=== PATIENT | female | born 1995 | race Caucasian/White ===

== ENCOUNTER 2022-07-23 09:48 | Inpatient (IN) | payer OTHER, BC ==
[2022-07-23] MEDS ORDERED: LIDOCAINE 0.5% (PF) 5 MG/ML (50 ML SDV) SQ PRN (10:23)
[2022-07-23] MEDS ORDERED: OXYTOCIN 10 UNIT/ML 1 ML VIAL IM PRN (10:23)
[2022-07-23] MEDS ORDERED: METHYLERGONOVINE 0.2 MG/ML 1 ML AMP IM PRN (10:23)
[2022-07-23] MEDS ORDERED: CARBOPROST TROMETHAMINE 250 MCG/ML 1 ML AMP IM PRN (10:23)
[2022-07-23] MEDS ORDERED: TERBUTALINE 1 MG/ML VIAL SQ PRN (10:23)
[2022-07-23] MEDS ORDERED: OXYTOCIN 30 UNITS/500 ML NS 30 UNIT in SALINE 1 500ML.BAG IV SCH ×2 (10:30→23:30)
[2022-07-23] MEDS: LACTATED RINGERS 1,000 ML IV SCH ×2 (11:02→17:06)
--- NOTE | 2022-07-23 11:06 | P.HPOB ---
History of Present Illness H&P Date: 07/23/22 Chief Complaint: Leaking of fluid This patient is a pleasant 26-year-old 1 para 0 female estimated date of confinement 08/03/2022 estimated gestational age 38-2/7 weeks who presents to labor and delivery with complaints of gush of fluid earlier this morning. Patient presents to labor and delivery an amnio sure is positive with gross rupture membranes for light meconium-stained fluid. care has been uncomplicated. She did have an ultrasound my office that suggested a possible pericardial effusion however she was referred to maternal- medicine and level III ultrasound did not confirm this. She had a normal cardiac echo. care otherwise is uncomplicated. Review of Systems Genitourinary: Reports Menstruation: Reports amenorrhea Past Medical History History of Any Multi-Drug Resistant Organisms: None Reported Past Surgical History: Adenoidectomy, Tonsillectomy Additional Past Surgical History / Comment(s): Oral surgery Past Anesthesia/Blood Transfusion Reactions: No Reported Reaction Past Psychological History: No Psychological Hx Reported Smoking Status: Never smoker Past Alcohol Use History: None Reported Past Drug Use History: None Reported Medications and Allergies Home Medications Medication Instructions Recorded Confirmed Type Vit No.179/Iron/Folic 1 tab PO DAILY 07/23/22 07/23/22 History [ Tablet] Allergies Allergy/AdvReac Type Severity Reaction Status Date / Time No Known Allergies Allergy Verified 07/23/22 10:09 Exam Vital Signs Temp Pulse Resp BP Pulse Ox 07/23/22 10:20 98.0 F 102 H 16 129/78 99 Intake and Output 07/22/22 07/23/22 07/23/22 22:59 06:59 14:59 Other: Weight 108.862 kg - OBG Physical Exam Abdomen: bowel sounds normal, no diffuse tenderness, no bruit present, no guarding noted, no hepatomegaly, no splenomegaly, no mass Vulva: both: normal Vagina: normal moisture, no discharge Cervix: no lesion (Cervix is 1 cm and thick.), no discharge Uterus: enlarged (Fundal height is 38 cm) Results blood work shows she is O positive, rubella immune, RPR nonreactive, hepatitis B negative, HIV is nonreactive, Glucola was normal, group B strep was negative, most recent ultrasound done on the showed the baby to be 6 lbs. 12 oz. Assessment and Plan Assessment: This is a pleasant 26-year-old 1 para 0 female 38-2/7 weeks gestation admitted to labor and delivery with spontaneous rupture membranes and meconium- stained fluid. Patient's cervix is 1 cm and thick. Plan is to admit for delivery and Pitocin augmentation as needed. Anticipate vaginal delivery. (1) 38 weeks gestation of Current Visit: Yes Status: Acute Code(s): Z3A.38 - 38 WEEKS GESTATION OF SNOMED Code(s): 37428163 (2) Spontaneous rupture of amniotic membranes Current Visit: Yes Status: Acute Code(s): LMU0574 - SNOMED Code(s): 483568343 (3) Meconium in amniotic fluid Current Visit: Yes Status: Acute Code(s): P96.83 - MECONIUM STAINING SNOMED Code(s): 571625982
[2022-07-23 11:14] LABS: Basophils % (A) 0 %; Eosinophils # (A) 0.1 k/uL (0-0.7); Eosinophils % (A) 1 %; HCT 35.7 % (34.0-46.0); HGB 11.6 gm/dL (11.4-16.0); Hypochromasia Slight; Lymphocytes # (A) 1.7 k/uL (1.0-4.8); Lymphocytes % (A) 16 %; MCH 27.7 pg (25.0-35.0); MCHC 32.5 g/dL (31.0-37.0); MCV 85.3 fL (80.0-100.0); Mean Platelet Volume 8.5; Monocytes # (A) 0.5 k/uL (0-1.0); Monocytes % (A) 4 %; Neutrophils # (A) 8.6 k/uL (1.3-7.7); Neutrophils % (A) 78 %; Platelet Count 280 k/uL (150-450); RBC 4.18 m/uL (3.80-5.40); RDW 14.5 % (11.5-15.5)
[2022-07-23] MEDS ORDERED: ROPIVACAINE 5 MG/ML 20 ML AMPULE ONE (17:01)
[2022-07-23] MEDS ORDERED: fentaNYL (PF) 50 MCG/ML 5 ML AMP ONE (17:01)
[2022-07-23] MEDS ORDERED: SODIUM CHLORIDE 0.9% 100 ML BAG ONE (17:01)
[2022-07-23] MEDS ORDERED: diphenhydrAMINE 50 MG CAP PO PRN (23:27)
[2022-07-23] MEDS ORDERED: ZOLPIDEM 5 MG TAB PO PRN (23:27)
[2022-07-23] MEDS ORDERED: ACETAMINOPHEN TAB 325 MG TAB PO PRN (23:27)
[2022-07-23] MEDS ORDERED: HYDROCORTISONE 2.5% RECTAL CREAM 30 GM TUBE RECTAL PRN (23:27)
[2022-07-23] MEDS ORDERED: diphenhydrAMINE 50 MG/ML 1 ML VIAL IVP PRN ×2 (23:27)
[2022-07-23] MEDS ORDERED: diphenhydrAMINE 25 MG CAP PO PRN (23:27)
[2022-07-23] MEDS ORDERED: LANOLIN CREAM 5 GM TUBE TOPICAL PRN (23:27)
[2022-07-23] MEDS ORDERED: SIMETHICONE 80 MG CHEWABLE PO PRN (23:27)
[2022-07-23] MEDS ORDERED: BENZOCAINE/MENTHOL SPRAY 1 GM/SPRAY AEROSOL TOPICAL PRN (23:27)
--- NOTE | 2022-07-23 23:27 | P.PROBDLV ---
Vaginal Delivery Note - . Vaginal Delivery Note: 26-year-old 1 para 0 female estimated date of confinement 08/03/2022 estimated gestational age 38-2/7 weeks who presents to labor and delivery with complaints of gush of fluid earlier this morning. Patient presents to labor and delivery an amnio sure is positive with gross rupture membranes for light meconium-stained fluid. Her cervix was 1 cm dilated, 50% effaced, -2 station. She was not sugar. heart tones 135 with moderate variability and r eactive. Pitocin augmentation was soon started. When she was very uncomfortable 3 cm she did get an epidural late in the day. Her cervix was completely dilated at 2038. She pushed, delivered a viable female over intact perineum under epidural anesthesia at 2311. Head delivered OA, anterior shoulder delivered gentle downward guidance followed by posterior shoulder and rest of body. Nose and mouth bulb suctioned, cord clamped and cut, placed on mother's abdomen. Apgars 8, 9, weight 7 lbs. 7 oz. Placenta delivered spontaneously, intact with three-vessel cord at 2314. Vagina, cervix, and perineum were inspected. First-degree midline laceration was repaired with 3-0 Vicryl. Estimated blood loss 75 mL. Mother and baby in stable condition.
[2022-07-24] MEDS: IBUPROFEN 600 MG TAB PO PRN ×3 (00:27→20:03)
--- NOTE | 2022-07-24 06:37 | P.PNOBGVD ---
Subjective - Subjective Patient reports: Reports appetite normal, Reports voiding normally, Reports pain well controlled, Reports ambulating normally : doing well Objective - Latest Vital Signs Latest vital signs: Vital Signs Temp Pulse Resp BP Pulse Ox 07/24/22 04:00 99.3 F 98 16 122/70 97 07/24/22 01:23 97.9 F 96 16 126/63 07/24/22 00:53 98.2 F 97 16 128/77 07/24/22 00:23 98.3 F 95 16 143/67 07/24/22 00:08 117 H 16 147/79 07/23/22 23:53 98.1 F 110 H 16 142/83 07/23/22 23:38 110 H 16 130/61 07/23/22 23:23 98.4 F 106 H 18 124/66 07/23/22 10:34 98 F 102 H 16 129/78 99 07/23/22 10:20 98.0 F 102 H 16 129/78 99 Intake and Output 07/23/22 07/23/22 07/24/22 14:59 22:59 06:59 Intake Total 400 189.6 Output Total 350 310 Balance 400 -350 -120.4 Intake: IV 400 Intake, IV Titration 189.6 Amount Oxytocin 30 Units/500 ml 189.6 Ns 30 unit In Saline 1 500ml.bag @ Per Protocol IV .Q0M [facility] Rx#:[id number] Output: Urine 350 Estimated Blood Loss 75 Output, Quantitative 235 Blood Loss Other: # Voids 2 1 Weight 108.862 kg - Exam Lungs: bilateral: normal Chest: Normal S1, Normal S2 Extremities: Present: normal Abdomen: Present: normal appearance, soft Uterus: Present: normal, firm - Labs Labs: Abnormal Lab Results - Last 24 Hours (Table) 07/23/22 Range/Units 10:15 WBC 11.0 H (3.8-10.6) k/uL Neutrophils # 8.6 H (1.3-7.7) k/uL Assessment and Plan Assessment: day #1. Patient is resting without complaints. Vital signs are stable she's afebrile. Uterus is firm nontender and she is having normal lochia. Impression this is a normal course. Plan is to check a CBC. Continue routine care. (1) 38 weeks gestation of Current Visit: Yes Status: Acute Code(s): Z3A.38 - 38 WEEKS GESTATION OF SNOMED Code(s): 77858866 (2) Spontaneous rupture of amniotic membranes Current Visit: Yes Status: Acute Code(s): MTW4928 - SNOMED Code(s): 571302310 (3) Meconium in amniotic fluid Current Visit: Yes Status: Acute Code(s): P96.83 - MECONIUM STAINING SN OMED Code(s): 241819199
--- NOTE | 2022-07-24 06:51 | P.MSEPDOC ---
Presenting Problems - Arrival Data Date of Arrival on Unit: 07/23/22 Time of Arrival on Unit: 10:16 Mode of Transport: Ambulatory - Complaint OB-Reason for Admission/Chief Complaint: Rule Out SROM Medical History - Information : 1 Para: 0 Term: 0 : 0 Abortions: Spontaneous or Elective: 0 Number of Living Children: 0 - Gestational Age Gestational Age by EDGAR (wks/days): 38 Weeks and 4 Days Review of Systems - Review of Systems Constitutional: No problems Breast: No problems ENT: No problems Cardiovascular: No problems Respiratory: No problems Gastrointestinal: No problems Genitourinary: No problems Musculoskeletal: No problems Neurological: No problems Skin: No problems Vital Signs - Temperature Temperature: 99.3 F Temperature Source: Oral - Pulse Right Sitting Pulse Rate: 98 Pulse Assessment Method: Pulse Oximetry - Respirations Respiratory Rate: 16 Oxygen Delivery Method: Room Air O2 Sat by Pulse Oximetry: 97 - Blood Pressure Right Arm Blood Pressure: 122/70 Blood Pressure Mean: 87 Blood Pressure Source: Automatic Cuff Medical Screen Scoring - Cervical Exam Dilation (cm): 1 Effacement (%): 50 Station: -2 Membranes: Ruptured - Uterine Contractions Intensity: Mild Resting: Soft to palpation - Assessment - Baby A Baseline FHR: 150 Heart Rate - NICHD Category: Category II (Indeterminate) NST: Reactive Physician Notification - Physician Notified Physician Notified Date: 07/23/22 Physician Notified Time: 10:16 Physician: Manuel Carver New Order Received: Yes (admit) Maternal Triage Index - Non-Urgent/Priority 4 Non-Urgent Priority 4: Yes Criteria Met for Priority 4: SROM 0830, reactive nst, positive amnisure, mec fluid Disposition - Disposition OB Disposition: Admit, LDRP Suite I agree with the RN Medical Screening Exam: Yes Case reviewed; plan agreed upon as documented in EMR&OBIX.: Yes Diagnosis: ENCOUNTER FOR FULL-TERM UNCOMPLICATED DELIVERY
[2022-07-24 06:55] LABS: Basophils % (A) 0 %; Eosinophils % (A) 0 %; Hypochromasia Slight; Lymphocytes # (A) 1.7 k/uL (1.0-4.8); Lymphocytes % (A) 13 %; MCHC 32.7 g/dL (31.0-37.0); MCV 85.4 fL (80.0-100.0); Mean Platelet Volume 9.4; Monocytes # (A) 0.6 k/uL (0-1.0); Monocytes % (A) 4 %; Neutrophils # (A) 10.7 k/uL (1.3-7.7); Neutrophils % (A) 81 %; Platelet Count 231 k/uL (150-450); RBC 3.51 m/uL (3.80-5.40); RDW 14.6 % (11.5-15.5); WBC 13.2 k/uL (3.8-10.6)
[2022-07-24 07:20] LABS: HGB 9.8 gm/dL (11.4-16.0)
[2022-07-24] MEDS: SENNOSIDES-DOCUSATE SODIUM 1 EACH TAB PO SCH ×2 (11:01→20:03)
[2022-07-25 00:48] VITALS: RESP 16
--- NOTE | 2022-07-25 06:37 | P.PNOBGVD ---
Subjective - Subjective Patient reports: Reports appetite normal, Reports voiding normally, Reports pain well controlled, Reports ambulating normally : doing well Objective - Latest Vital Signs Latest vital signs: Vital Signs Temp Pulse Resp BP Pulse Ox 07/25/22 00:00 98.5 F 100 16 118/72 98 07/24/22 16:00 98.3 F 70 14 120/72 07/24/22 12:38 98.6 F 07/24/22 12:00 98.3 F 85 16 124/75 07/24/22 08:00 98.2 F 81 16 122/76 99 07/24/22 06:51 99.3 F 98 16 122/70 97 Intake and Output 07/24/22 07/24/22 07/25/22 14:59 22:59 06:59 Other: # Voids 1 1 1 - Exam Lungs: bilateral: normal Chest: Normal S1, Normal S2 Extremities: Present: normal Abdomen: Present: normal appearance, soft Uterus: Present: normal, firm - Labs Labs: Abnormal Lab Results - Last 24 Hours (Table) 07/24/22 Range/Units 06:40 WBC 13.2 H (3.8-10.6) k/uL RBC 3.51 L (3.80-5.40) m/uL Hgb 9.8 L D (11.4-16.0) gm/dL Hct 30.0 L (34.0-46.0) % Neutrophils # 10.7 H (1.3-7.7) k/uL Assessment and Plan Assessment: day #2. Patient is resting without complaints and wishes to go home. Vital signs are stable and she is afebrile. Uterus is firm nontender. My impression this is a normal course. Plan is to continue routine care and discharge home later today. (1) 38 weeks gestation of Current Visit: Yes Status: Acute Code(s): Z3A.38 - 38 WEEKS GESTATION OF SNOMED Code(s): 46547087 (2) Spontaneous rupture of amniotic membranes Current Visit: Yes Status: Acute Code(s): NDT0578 - SNOMED Code(s): 430293387 (3) Meconium in amniotic fluid Current Visit: Yes Status: Acute Code(s): P96.83 - MECONIUM STAINING SNOMED Code(s): 537153700
--- NOTE | 2022-07-25 06:41 | P.DS ---
Providers Date of admission: 07/23/22 10:18 Expected date of discharge: 07/25/22 Attending physician: Manuel Carver Primary care physician: Stated None - Discharge Diagnosis(es) (1) 38 weeks gestation of Current Visit: Yes Status: Acute (2) Spontaneous rupture of amniotic membranes Current Visit: Yes Status: Acute (3) Meconium in amniotic fluid Current Visit: Yes Status: Acute Hospital Course: Please see dictated H&P for intimate details of this patient's admission. Brief summary this is a pleasant 26-year-old 1 para 0 female 38 and half weeks gestation admitted to labor and delivery with spontaneous rupture membranes. Patient's Pitocin augmentation of labor was on have a vaginal delivery viable female infant. Please see dictated delivery note. day #2 patient's felt be stable for discharge home follow up with me in 6 weeks. Procedures: Normal spontaneous vaginal delivery Patient Condition at Discharge: Good Plan - Discharge Summary New Discharge Prescriptions: New Ibuprofen [Motrin] 600 mg PO Q6HR PRN #30 tab PRN Reason: Mild Pain (Scale 1 To 3) No Action Vit No.179/Iron/Folic [ Tablet] 1 tab PO DAILY Discharge Medication List Vit No.179/Iron/Folic [ Tablet] 1 tab PO DAILY 07/23/22 [History] Ibuprofen [Motrin] 600 mg PO Q6HR PRN #30 tab 07/25/22 [Rx] Follow up Appointment(s)/Referral(s): Manuel Carver MD [STAFF PHYSICIAN] - 09/05/22 9:30 am Patient Instructions/Handouts: Vaginal Delivery (DC) Activity/Diet/Wound Care/Special Instructions: No intercourse or anything per vagina for 6 weeks. Please call if any fever, chills, excessive vaginal bleeding, and/or abdominal pain. Discharge Disposition: HOME SELF-CARE
[2022-07-25 08:00] VITALS: BP 127/82; PULSE 102; TEMP 98.4
== END 2022-07-25 08:45 | disposition home or self-care (01) | DRG 807 ==
LOC: FBPOP 09:48 → 4FBP 10:18
PROVIDERS: ADMIT Obstetrics & Gynecology; ATTEND Obstetrics & Gynecology
PROC: 10E0XZZ Delivery of Products of Conception, External Approach (ICD-10-PCS; principal; 2022-07-23)
PROC: 0HQ9XZZ Repair Perineum Skin, External Approach (ICD-10-PCS; 2022-07-23)
PROC: 3E0R3BZ Introduction of Anesthetic Agent into Spinal Canal, Percutaneous Approach (ICD-10-PCS; 2022-07-23)
DX: O77.0 Labor and delivery complicated by meconium in amniotic fluid (principal); Z37.0 Single live birth; O70.0 First degree perineal laceration during delivery; Z3A.38 38 weeks gestation of pregnancy
CPT/HCPCS: 59025; 84112; 85025; 86850; 86900; 86901; 99213

== ENCOUNTER 2023-01-29 17:44 | Emergency (ER) | payer OTHER, BC ==
[2023-01-29] MEDS ORDERED: LIDOCAINE 1% INJ 10MG/ML (30 ML VIAL-PF) SQ ONE (19:08)
[2023-01-29] MEDS ORDERED: ACET/COD 300 MG/30 MG STARTER PACK 6 TAB BTL PO STA (19:32)
--- NOTE | 2023-01-29 19:34 | ED ---
Skin/Abscess/FB HPI - General Chief complaint: Skin/Abscess/Foreign Body Stated complaint: RUPTURED CYST Time Seen by Provider: 01/29/23 19:02 Source: patient, RN notes reviewed Mode of arrival: ambulatory Limitations: no limitations - History of Present Illness Initial comments: 27-year-old female presents emergency Department chief complaint of abscess on her buttocks. Patient states started 3 days ago states she seen at urgent care and was told that they could not open this. She is placed on antibiotics states that she's been taken Bactrim and Keflex. Patient states pain is become unbearable. - Related Data Home Medications Medication Instructions Recorded Confirmed Vit No.179/Iron/Folic 1 tab PO DAILY 07/23/22 07/23/22 [ Tablet] Previous Rx's Medication Instructions Recorded Ibuprofen [Motrin] 600 mg PO Q6HR PRN #30 tab 07/25/22 Allergies Allergy/AdvReac Type Severity Reaction Status Date / Time povidone-iodine Allergy Rash/Hives Verified 01/29/23 18:19 [From Betadine] Review of Systems ROS Statement: Those systems with pertinent positive or pertinent negative responses have been documented in the HPI. ROS Other: All systems not noted in ROS Statement are negative. Past Medical History Past Medical History: No Reported History History of Any Multi-Drug Resistant Organisms: None Reported Past Surgical History: Adenoidectomy, Tonsillectomy Additional Past Surgical History / Comment(s): Oral surgery Past Anesthesia/Blood Transfusion Reactions: No Reported Reaction Past Psychological History: No Psychological Hx Reported Smoking Status: Never smoker Past Alcohol Use History: None Reported Past Drug Use History: None Reported - Past Family History Father Family Medical History: Hypertension Mother Additional Family Medical History / Comment(s): multiple sclerosis General Exam Limitations: no limitations General appearance: alert, in no apparent distress Head exam: Present: atraumatic, normocephalic, normal inspection Respiratory exam: Present: normal lung sounds bilaterally. Absent: respiratory distress, wheezes, rales, rhonchi, stridor Cardiovascular Exam: Present: regular rate, normal rhythm, normal heart sounds. Absent: systolic murmur, diastolic murmur, rubs, gallop, clicks Skin exam: Present: other (Left cleft of the buttocks 3 cm abscess) Course Vital Signs 01/29/23 01/29/23 18:16 19:53 Temperature 98.8 F 97.9 F Pulse Rate 101 H 72 Respiratory 20 14 Rate Blood Pressure 124/73 136/68 O2 Sat by Pulse 99 100 Oximetry Procedures - Incision & Drainage Consent Obtained: verbal consent, written consent Site: buttock Size (cm): 3 Anesthetic Used: lidocaine 1%, without epi Amount (mLs): 6 I&D Cleaning Method: Alcohol Wipe Sterile Field Used?: No Scalpel Used: #11 I&D Drainage Obtained: Pus, Blood Culture Obtained?: Yes Patient Tolerated Procedure: well, no complications Medical Decision Making - Medical Decision Making Was pt. sent in by a medical professional or institution (KADEEM Nowak, MANAGER OF FINANCIAL REPORTING, urgent care, hospital, or [facility]...) When possible be specific @ -No Did you speak to anyone other than the patient for history (EMS, parent, family, police, friend...)? What history was obtained from this source @ -No Did you review nursing and triage notes (agree or disagree)? Why? @ -I reviewed and agree with nursing and triage notes Were old charts reviewed (outside hosp., previous admission, EMS record, old EKG, old radiological studies, urgent care reports/EKG's, [facility] records)? Report findings @ -No old charts were reviewed Differential Diagnosis (chest pain, altered mental status, abdominal pain women, abdominal pain men, vaginal bleeding, weakness, fever, dyspnea, syncope, headache, dizziness, GI bleed, back pain, seizure, CVA, palpatations, mental health, musculoskeletal)? @ -Abscess, cellulitis, this list is not all inclusive EKG interpreted by me (3pts min.). @ -None X-rays interpreted by me (1pt min.). @ -None done CT interpreted by me (1pt min.). @ -None done U/S interpreted by me (1pt. min.). @ -None done What testing was considered but not performed or refused? (CT, X-rays, U/S, l abs)? Why? @ -None What meds were considered but not given or refused? Why? @ -None Did you discuss the management of the patient with other professionals (professionals i.e. KADEEM Nowak, MANAGER OF FINANCIAL REPORTING, lab, RT, psych nurse, social work coordinator, mercantile reporter, teacher, chief clinical officer, foster care case manager)? Give summary @ -No Was smoking cessation discussed for >3mins.? @ -No Was critical care preformed (if so, how long)? @ -No Were there social determinants of health that impacted care today? How? (Homelessness, low income, unemployed, alcoholism, drug addiction, transportation, low edu. Level, literacy, decrease access to med. care, assisted, rehab)? @ -No Was there de-escalation of care discussed even if they declined (Discuss DNR or withdrawal of care, Hospice)? DNR status @ -No What co-morbidities impacted this encounter? (DM, HTN, Smoking, COPD, CAD, Cancer, CVA, ARF, Chemo, Hep., AIDS, mental health diagnosis, sleep apnea, morbid obesity)? @ -None Was patient admitted / discharged? Hospital course, mention meds given and route, prescriptions, significant lab abnormalities, going to OR and other pertinent info. @ -Discharge patient has evidence of abscess which was opened after consent. Patient continue oral antibiotics as directed and warm compresses. Undiagnosed new problem with uncertain prognosis? @ -No Drug Therapy requiring intensive monitoring for toxicity (Heparin, Nitro, Insulin, Cardizem)? @ -No Were any procedures done? @ -I&D see note Diagnosis/symptom? @ -pilinodall cyst Acute, or Chronic, or Acute on Chronic? @ -Acute Uncomplicated (without systemic symptoms) or Complicated (systemic symptoms)? @ -Uncomplicated Side effects of treatment? @ -No Exacerbation, Progression, or Severe Exacerbation? @ -No Poses a threat to life or bodily function? How? (Chest pain, [place], [place], pneumonia, PE, COPD, DKA, ARF, appy, cholecystitis, CVA, Diverticulitis, Homicidal, Suicidal, threat to staff... and all critical care pts) @ -No Disposition Clinical Impression: Pilonidal abscess of julisa cleft Disposition: HOME SELF-CARE Condition: Stable Instructions (If sedation given, give patient instructions): Abscess Incision and Drainage (ED) Additional Instructions: Please return to the Emergency Department if symptoms worsen or any other concerns. Is patient prescribed a controlled substance at d/c from ED?: No Referrals: Cornell Rivera Jr, DO [Primary Care Provider] - 1-2 days Time of Disposition: 19:34
[2023-01-29 19:54] VITALS: BP 136/68; PULSE 72; RESP 14; TEMP 97.9
== END 2023-01-29 20:04 | disposition home or self-care (01) ==
LOC: EC 17:44
DX: L05.01 Pilonidal cyst with abscess (principal); Z88.3 Allergy status to other anti-infective agents
CPT/HCPCS: 99282 ×2; 10080 ×2; J2001

== ENCOUNTER 2023-09-15 07:04 | Day surgery (SDC) | payer BC, OTHER ==
[2023-09-08 11:07] VITALS: BMI 32.7
[~2023-09-15 07:04] MED LIST: ACETAMINOPHEN TAB 500 MG TAB PO PRN; DEXAMETHASONE SOD PHOSPHATE 4 MG/ML 1 ML VIAL IV ONE; HEPARIN SODIUM,PORCINE/PF 5,000 UNIT/0.5 ML SYRINGE SQ PRN; HYDROmorphone 0.5 MG/0.5 ML SYRINGE IVP PRN; LACTATED RINGERS 1,000 ML IV SCH; LIDOCAINE 1% (10MG/ML) FOR IV START INTRADERMA PRN; ONDANSETRON 4 MG/2 ML VIAL IVP ONE; ONDANSETRON 4 MG/2 ML VIAL IVP PRN; droPERidol 5 MG/2 ML VIAL IVP ONE; metroNIDAZOLE-NS PMX 500 MG in SALINE 1 100ML.BAG IVPB PRN
[2023-09-15] MEDS ORDERED: SUCCINYLCHOLINE CHLORIDE 200 MG/10 ML VIAL IV ONE (08:24)
[2023-09-15] MEDS ORDERED: PROPOFOL 10 MG/ML 20 ML VIAL IV ONE (08:24)
[2023-09-15] MEDS ORDERED: fentaNYL (PF) 50 MCG/ML 2 ML AMP ONE (08:24)
[2023-09-15] MEDS ORDERED: HYDROmorphone (PF) 1 MG/ML ONE (08:24)
[2023-09-15] MEDS ORDERED: LIDOCAINE 1% INJ 10MG/ML (20 ML MDV) ONE (08:24)
[2023-09-15] MEDS ORDERED: MIDAZOLAM 2 MG/2 ML VIAL ONE (08:24)
[2023-09-15] MEDS ORDERED: LIDOCAINE 0.5%-EPI 1:200,000 50 ML VIAL SQ ONE (08:51)
--- NOTE | 2023-09-15 09:24 | P.OP ---
Date of Procedure: 09/15/23 Preoperative Diagnosis: Pilonidal cyst Postoperative Diagnosis: Pilonidal cyst Procedure(s) Performed: Excision of pilonidal cyst Anesthesia: RAYA Surgeon: Skip Steele Estimated Blood Loss (ml): 5 Pathology: other (Pilonidal cyst) Condition: stable Disposition: PACU Description of Procedure: The patient's placed on the operative table in the prone jackknife position after receiving general anesthesia. The area the prognosis was perfectly sterile fashion. Using a 15 blade elliptical skin incision was made around the palpable cyst. Electrocautery the prognosis was excised. The Bovie was used for hemostasis. There is no bleeding seen. The wound was then packed with wet-to-dry Kerlix dressing. Patient top procedure well. She was sent to cover room in stable condition.
[2023-09-15 09:27] VITALS: TEMP 97
[2023-09-15 09:57] VITALS: RESP 18
[2023-09-15 10:27] VITALS: BP 117/78; PULSE 97
== END 2023-09-15 10:40 | disposition home health service (06) ==
LOC: OR 07:04
PROVIDERS: ATTEND Surgery
DX: L05.91 Pilonidal cyst without abscess (principal); Z79.899 Other long term (current) drug therapy; Z98.890 Other specified postprocedural states; Z91.041 Radiographic dye allergy status
CPT/HCPCS: 11770; 81025; 88304; J2250; J0330; J1100; J0690; J2405; J2001; J3010; J1170; J2704; J1644; J1836

== ENCOUNTER 2024-08-08 11:32 | Inpatient (IN) | payer BC ==
[2024-08-08] MEDS ORDERED: TERBUTALINE 1 MG/ML VIAL SQ PRN (12:12)
[2024-08-08] MEDS ORDERED: TRANEXAMIC 1,000 MG/100ML-NACL 1,000 MG in EMPTY BAG 1 BAG IV PRN (12:12)
[2024-08-08] MEDS ORDERED: CARBOPROST TROMETHAMINE 250 MCG/ML 1 ML AMP IM PRN (12:12)
[2024-08-08] MEDS ORDERED: METHYLERGONOVINE 0.2 MG/ML 1 ML AMP IM PRN (12:12)
[2024-08-08] MEDS ORDERED: miSOPROStoL 200 MCG TAB PO PRN (12:12)
[2024-08-08] MEDS ORDERED: miSOPROStoL 200 MCG TAB RECTAL PRN (12:12)
[2024-08-08] MEDS ORDERED: OXYTOCIN 10 UNIT/ML 1 ML VIAL IM PRN (12:12)
[2024-08-08 12:40] LABS: Appearance,Urine Cloudy (Clear); Bacteria,Urine Occasional /hpf; Bilirubin,Urine Negative (Negative); Blood,Urine Negative (Negative); Color,Urine Yellow; Glucose,Urine (UA) Negative (Negative); Leukocyte Esterase,Urine Trace (Negative); Mucus,Urine Many /hpf; Nitrite,Urine Negative (Negative); Protein,Urine 1+ (Negative); RBC,Urine 2 /hpf (0-5); Specific Gravity,Urine 1.029 (1.001-1.035); Squamous Epithelial Cell,Urine 14 /hpf (0-4); Urobilinogen,Urine <2.0 mg/dL (<2.0); WBC,Urine 1 /hpf (0-5)
[2024-08-08 12:51] LABS: Creatinine,Urine Random 324.9 mg/dL; Protein/Creatinine Ratio,Urine 0.015
[2024-08-08 13:04] LABS: Ketones,Urine 3+ (Negative)
[2024-08-08] MEDS: LACTATED RINGERS 1,000 ML IV SCH (13:17)
[2024-08-08 14:11] LABS: Basophils # (A) 0.1 k/uL (0-0.2); Basophils % (A) 1 %; Eosinophils # (A) 0.1 k/uL (0-0.7); Eosinophils % (A) 1 %; HCT 37.3 % (34.0-46.0); HGB 12.7 gm/dL (11.4-16.0); Lymphocytes # (A) 1.1 k/uL (1.0-4.8); Lymphocytes % (A) 9 %; MCH 28.9 pg (25.0-35.0); MCHC 33.9 g/dL (31.0-37.0); Mean Platelet Volume 8.1; Monocytes # (A) 0.3 k/uL (0-1.0); Monocytes % (A) 2 %; Neutrophils # (A) 10.5 k/uL (1.3-7.7); Neutrophils % (A) 86 %; Platelet Count 348 k/uL (150-450); RBC 4.39 m/uL (3.80-5.40); RDW 14.7 % (11.5-15.5); WBC 12.2 k/uL (3.8-10.6)
[2024-08-08 14:19] LABS: INR 0.8 (<1.2); Partial Thromboplastin Time 26.9 sec (22.0-30.0); Prothrombin Time 9.3 sec (10.0-12.5)
[2024-08-08 14:20] LABS: ALT 15 U/L (4-34); AST 32 U/L (14-36); African American GFR (CKD) >90 (>60 ml/min/1.73 sqM); Blood Urea Nitrogen 6 mg/dL (7-17); LDH 299 U/L (120-246); Non-African American GFR(CKD) >90 (>60 ml/min/1.73 sqM); Uric Acid 5.1 mg/dL (3.7-7.4)
[2024-08-08] MEDS ORDERED: SODIUM CHLORIDE 0.9% 250 ML BAG ONE (14:42)
[2024-08-08] MEDS ORDERED: fentaNYL (PF) 50 MCG/ML 5 ML AMP ONE (14:42)
[2024-08-08] MEDS ORDERED: ROPIVACAINE 5 MG/ML 30 ML VIAL ONE (14:42)
[2024-08-08] MEDS: hydrALAZINE HCL 20 MG/ML 1 ML VIAL IVP STA ×2 (15:55→19:29)
--- NOTE | 2024-08-08 17:51 | P.HPOB ---
History of Present Illness H&P Date: 08/08/24 Chief Complaint: Contractions Ms. Sifuentes is a 28 year old at 38 weeks and 4 days weith EDC of 08/18/2024 who presents to L&D with regular uterine contractions in labor. has been uncomplicated. The fetus is estimated in the 70%ile for growth based on a 32 week US. On admission, the patient is noted to have mild range blood pressures and 1 severe-range BP. She is treated with 5mg of IV hydralazine. Obstetric history: 1 FTVD, no complications work-up: blood type O positive, antibody screen negative, rubella immune, VDRL non-reactive, HBsAg negative, HIV negative, HCV non-reactive, gonorrhea negative, chlamydia negative, 1 hour GTT wnl, GBS negative. s/p TDap Past Medical History Past Medical History: No Reported History History of Any Multi-Drug Resistant Organisms: None Reported Past Surgical History: Adenoidectomy, Tonsillectomy Additional Past Surgical History / Comment(s): Oral surgery. pylonital cystectomy in Aug 2023 Past Anesthesia/Blood Transfusion Reactions: No Reported Reaction Past Psychological History: No Psychological Hx Reported Smoking Status: Former smoker Past Alcohol Use History: Occasional Past Drug Use History: None Reported - Past Family History Father Family Medical History: Hypertension Mother Additional Family Medical History / Comment(s): Multiple sclerosis. Medications and Allergies Home Medications Medication Instructions Recorded Confirmed Type Acetaminophen Tab [Tylenol] 650 mg PO Q6H #30 tab 09/15/23 08/08/24 Rx Vit No.179/Iron/Folic 1 tab PO DAILY 07/31/24 08/08/24 History [ Tablet] guaiFENesin-DM 100-10MG/5ML 20 ml PO Q4HR PRN 08/08/24 08/08/24 History [Robitussin DM] Allergies Allergy/AdvReac Type Severity Reaction Status Date / Time povidone-iodine Allergy Rash/Hives Verified 07/31/24 21:02 [From Betadine] Exam Vital Signs Temp Pulse Resp BP Pulse Ox 08/08/24 12:52 96.8 F L 116 H 18 156/72 93 L 08/08/24 12:30 96.8 F L 116 H 20 156/72 93 L Intake and Output 08/08/24 08/08/2424 06:59 14:59 22:59 Output Total 300 Balance -300 Output: Urine 300 Straight 300 Other: # Voids 3 Weight 110.223 kg Focused physical exam is performed. This is a healthy-appearing in no apparent distress. Breathing is non-labored. Abdomen is gravid and non-tender. Cervical exam is 4/90/-2. AROM is undertaken with thin meconium noted. Extremities non-tender and non-edematous. heart tones are Category I and tocometer is graphing contractions every 2-4 minutes. Results Result Diagrams: 08/08/24 13:15 08/08/24 13:15 Abnormal Lab Results - Last 24 Hours (Table) 08/08/24 08/08/24 08/08/24 Range/Units 12:20 13:15 13:15 WBC 12.2 H (3.8-10.6) k/uL Neutrophils # 10.5 H (1.3-7.7) k/uL PT 9.3 L (10.0-12.5) sec Fibrinogen 858 H (200-500) mg/dL BUN (7-17) mg/dL Creatinine (0.52-1.04) mg/dL Lactate Dehydrogenase (120-246) U/L Urine Appearance Cloudy H (Clear) Urine Protein 1+ H (Negative) Urine Ketones 3+ H (Negative) Ur Leukocyte Esterase Trace H (Negative) Ur Squamous Epith Cells 14 H (0-4) /hpf Urine Bacteria Occasional H (None) /hpf Urine Mucus Many H (None) /hpf 08/08/24 Range/Units 13:15 WBC (3.8-10.6) k/uL Neutrophils # (1.3-7.7) k/uL PT (10.0-12.5) sec Fibrinogen (200-500) mg/dL BUN 6 L (7-17) mg/dL Creatinine 0.51 L (0.52-1.04) mg/dL Lactate Dehydrogenase 299 H (120-246) U/L Urine Appearance (Clear) Urine Protein (Negative) Urine Ketones (Negative) Ur Leukocyte Esterase (Negative) Ur Squamous Epith Cells (0-4) /hpf Urine Bacteria (None) /hpf Urine Mucus (None) /hpf Assessment and Plan Assessment: 28 year old at 38 weeks and 4 days presenting in labor, elevated blood pressures Plan: 1. Labor. Expectant management. Epidural prn. Continuous EFM and tocometer. Anticipate vaginal delivery. 2. Elevated blood pressures, suspect gestational HTN. PIH labs wnl, P:C 0.01. 3. Recent bronchitis with intermittently low oxygen saturation. Use supplemental O2 prn spO2 <94%.
[2024-08-08] MEDS: OXYTOCIN 30 UNITS/500 ML NS 30 UNIT in SALINE 1 500ML.BAG IV SCH (19:00)
[2024-08-08] MEDS: LIDOCAINE 0.5% (PF) 5 MG/ML (50 ML SDV) SQ PRN (20:45)
[2024-08-08] MEDS ORDERED: BENZOCAINE/MENTHOL SPRAY 1 GM/SPRAY AEROSOL TOPICAL PRN (20:55)
[2024-08-08] MEDS ORDERED: HYDROCORTISONE 2.5% RECTAL CREAM 30 GM TUBE RECTAL PRN (20:55)
[2024-08-08] MEDS ORDERED: diphenhydrAMINE 25 MG CAP PO PRN (20:55)
[2024-08-08] MEDS ORDERED: ZOLPIDEM 5 MG TAB PO PRN (20:55)
[2024-08-08] MEDS ORDERED: diphenhydrAMINE 50 MG CAP PO PRN (20:55)
[2024-08-08] MEDS ORDERED: LANOLIN CREAM 1 GM TUBE TOPICAL PRN (20:55)
[2024-08-08] MEDS ORDERED: SIMETHICONE 80 MG CHEWABLE PO PRN (20:55)
[2024-08-08] MEDS ORDERED: diphenhydrAMINE 50 MG/ML 1 ML VIAL IVP PRN ×2 (20:55)
--- NOTE | 2024-08-08 20:55 | P.PROBDLV ---
Vaginal Delivery Note - . Vaginal Delivery Note: DATE OF SERVICE: 08/08/2024 PROCEDURE: Normal Vaginal Delivery ATTENDING: Dr. Sherrell Villa MD ESTIMATED BLOOD LOSS: 200 mL FINDINGS: VMI, Apgars 8/9. Weight 7 pounds and 12 ounces (3530 grams) PROCEDURE: Ms. Sifuentes is a 28 year old at 38 weeks and 4 days presenting to labor and delivery in spontaneous labor. The has been uncomplicated. For further details, please review the admitting H&P. The patient received epidural anesthesia per her request. AROM was performed at 1747 with thin meconium noted. Pitocin augmentation was started. The patient was completely dilated at 2031. She pushed effectively and brought the head to a crown. The head was delivered and one nuchal cord was reduced. The remainder of the infant was delivered without difficulty at 2036. The infant was placed on the maternal abdomen and bulb suctioned. The infant was noted to be spontaneously crying. Cord was clamped and cut after a 30-second delay. The was handed off to the pediatric team. Placenta was delivered whole with gentle cord traction at 2038. Oxytocin was started to facilitate uterine tone. Uterine fundus was found to be firm and below the umbilicus upon fundal massage. Thorough examination of the cervix, vagina, periurethral area, and perineum revealed a small second degree perineal laceration. The perineum was infiltrated with lidocaine and repaired with 2-0 Vicryl in the usual fashion. The patient is stable and allowed to begin the bonding process.
[2024-08-08] MEDS: IBUPROFEN 800 MG TAB PO SCH (22:11)
[2024-08-09] MEDS: ACETAMINOPHEN TAB 500 MG TAB PO SCH (01:29)
[2024-08-09 07:26] LABS: Basophils % (A) 0 %; Eosinophils % (A) 0 %; HCT 34.9 % (34.0-46.0); HGB 11.3 gm/dL (11.4-16.0); Lymphocytes # (A) 1.5 k/uL (1.0-4.8); Lymphocytes % (A) 14 %; MCH 28.3 pg (25.0-35.0); MCHC 32.5 g/dL (31.0-37.0); MCV 86.8 fL (80.0-100.0); Mean Platelet Volume 6.9; Monocytes # (A) 0.5 k/uL (0-1.0); Monocytes % (A) 4 %; Neutrophils # (A) 8.5 k/uL (1.3-7.7); Neutrophils % (A) 79 %; Platelet Count 344 k/uL (150-450); RBC 4.02 m/uL (3.80-5.40); RDW 14.3 % (11.5-15.5); WBC 10.7 k/uL (3.8-10.6)
[2024-08-09 08:51] VITALS: RESP 16
--- NOTE | 2024-08-09 08:55 | P.DS ---
Providers Date of admission: 08/08/24 12:05 Expected date of discharge: 08/09/24 Attending physician: Sherrell Villa MD Primary care physician: Stated None Hospital Course: Ms. Sifuentes is a 28 year old now PPD#1 s/p normal spontaneous vaginal delivery. Her intrapartum course was complicated by elevated blood pressure for which she was treated with IV hydralazine. She was asymptomatic during labor and continues to deny headache, visual disturbances, and RUQ pain. Her pressures after delivery have been normotensive to mild-range. The patient is doing well this morning and had no acute events overnight. She has no complaints this morning. She reports minimal lochia, passing flatus, voiding without difficulty, ambulating, and eating/drinking without nausea or vomiting. Infant doing well at bedside, will plan on circumcision this afternoon after has peed. She denies chest pain, shortness of breathing, fevers, or chills overnight. She denies pain or swelling in the legs. restrictions are reviewed with the patient including pelvic rest for 6 weeks. The patient is encouraged to call the office if she experiences any heavy bleeding, foul-smelling discharge, breast complaints, or any if she has any other concerns. She will follow up in the office with in 1 week for blood pressure check. All questions are answered. Assessment: 28 year old now PPD#1 s/p complicated by new-onset gestational hypertension Patient Condition at Discharge: Good Plan - Discharge Summary Discharge Rx Participant: No New Discharge Prescriptions: New Docusate [Colace] 100 mg PO BID PRN #60 capsule PRN Reason: Constipation No Action Acetaminophen Tab [Tylenol] 650 mg PO Q6H #30 tab Vit No.179/Iron/Folic [ Tablet] 1 tab PO DAILY guaiFENesin-DM 100-10MG/5ML [Robitussin DM] 20 ml PO Q4HR PRN PRN Reason: Cough Discharge Medication List Acetaminophen Tab [Tylenol] 650 mg PO Q6H #30 tab 09/15/23 [Rx] Vit No.179/Iron/Folic [ Tablet] 1 tab PO DAILY 07/31/24 [History] guaiFENesin-DM 100-10MG/5ML [Robitussin DM] 20 ml PO Q4HR PRN 08/08/24 [History] Docusate [Colace] 100 mg PO BID PRN #60 capsule 08/09/24 [Rx] Follow up Appointment(s)/Referral(s): Sherrell Villa MD [STAFF PHYSICIAN] - 1 Week (blood pressure check) Activity/Diet/Wound Care/Special Instructions: Instructions 1. Do not begin any exercise program for 3 weeks. 2. Do not resume sexual relations for 6 weeks or longer if uncomfortable. 3. You may take tub baths or showers at any time. 4. You may use tampons if desired after 6 weeks. 5. Keep any areas repaired with stitches clean and dry. 6. If you are not nursing, wear a good fitting, supportive bra during the day and limit fluid intake for at least 1 week to prevent breast engorgement. 7. Call the office, , within the next week to make appointment for your 6 week checkup if it has not already been made. 8. Report any of the following occurrences to the doctor promptly: a. Heavy, excessive bleeding b. Chills, fever c. Burning or frequency of urination d. Pain or redness and breasts if nursing e. Increasing pain or swelling of vulva (stitches). In addition to the above instructions, the following additional should be followed: 1. No heavy lifting or straining (exercising) until after 6 week checkup. 2. Keep abdominal incision clean and dry: You may wear a dressing if more comfortable. 3. Make office appointment for 2 weeks after delivery date. Discharge Disposition: HOME SELF-CARE
[2024-08-09] MEDS: SENNOSIDES-DOCUSATE SODIUM 1 EACH TAB PO SCH (10:19)
[2024-08-09] MEDS: AZITHROMYCIN 500 MG TAB PO STA (10:42)
[2024-08-09 16:39] VITALS: BP 124/72; PULSE 90; TEMP 98.2
--- NOTE | 2024-08-12 11:47 | P.MSEPDOC ---
Presenting Problems - Arrival Data Date of Arrival on Unit: 08/08/24 Time of Arrival on Unit: 12:03 Mode of Transport: Ambulatory - Complaint OB-Reason for Admission/Chief Complaint: Possible Onset of Labor Comment: pt presents to triage with contractions that started at 0700 that have been getting stronger and closer together, Medical History - Information : 2 Para: 1 Term: 1 : 0 Abortions: Spontaneous or Elective: 0 Number of Living Children: 1 - Gestational Age Gestational Age by EDGAR (wks/days): 38 Weeks and 3 Days Review of Systems - Review of Systems Constitutional: No problems Breast: No problems ENT: No problems Cardiovascular: No problems Respiratory: No problems Gastrointestinal: No problems Genitourinary: No problems Musculoskeletal: No problems Neurological: No problems Skin: No problems Comment: pt has bronchitis and feeling SOB, O2 running at 92-93 % Vital Signs - Temperature Temperature: 98.2 F Temperature Source: Oral - Pulse Right Brachial Pulse Rate: 90 Pulse Assessment Method: Automatic Cuff - Respirations Respiratory Rate: 16 - Blood Pressure Right Arm Blood Pressure: 124/72 Blood Pressure Mean: 89 Blood Pressure Source: Automatic Cuff Medical Screen Scoring - Cervical Exam Dilation (cm): 3 Effacement (%): 70 Station: -2 Membranes: Intact - Uterine Contractions Frequency From (mins): 3 Frequency To (mins): 6 Duration From (seconds): 50 Duration To (seconds): 120 Intensity: Moderate Resting: Soft to palpation - Assessment - Baby A Baseline FHR: 130 Heart Rate - NICHD Category: Category I (Normal) NST: Reactive Physician Notification - Physician Notified Physician Notified Date: 08/08/24 Physician Notified Time: 12:03 Physician: Philipp Mulligan Order Received: Yes - Notification Comment Comment: admit pt for labor, obtain PIH labs Maternal Triage Index - Maternal Triage Index Presenting for scheduled procedure w/no complaint: No - Stat/Priority 1 Stat Priority 1: No - Urgent/Priority 2 Urgent Priority 2: No - Prompt/Priority 3 Prompt Priority 3: Yes Criteria Met for Priority 3: pt presents to triage with contractions that started at 0700 that have been getting stronger and closer together, Disposition - Disposition OB Disposition: Admit, LDRP Suite Discharge Date: 08/09/24 Discharge Time: 22:00 I agree with the RN Medical Screening Exam: Yes Case reviewed; plan agreed upon as documented in EMR&OBIX.: Yes Diagnosis: ENCOUNTER FOR FULL-TERM UNCOMPLICATED DELIVERY
== END 2024-08-09 22:00 | disposition home or self-care (01) | DRG 807 ==
LOC: FBPOP 11:32 → 4FBP 12:05
PROVIDERS: ADMIT Obstetrics & Gynecology; ATTEND Obstetrics & Gynecology
PROC: 10E0XZZ Delivery of Products of Conception, External Approach (ICD-10-PCS; principal; 2024-08-08)
PROC: 0KQM0ZZ Repair Perineum Muscle, Open Approach (ICD-10-PCS; 2024-08-08)
PROC: 10907ZC Drainage of Amniotic Fluid, Therapeutic from Products of Conception, Via Natural or Artificial Opening (ICD-10-PCS; 2024-08-08)
PROC: 3E033VJ Introduction of Other Hormone into Peripheral Vein, Percutaneous Approach (ICD-10-PCS; 2024-08-08)
DX: O13.4 Gestational [pregnancy-induced] hypertension without significant proteinuria, complicating childbirth (principal); Z37.0 Single live birth; O69.81X0 Labor and delivery complicated by cord around neck, without compression, not applicable or unspecified; O70.1 Second degree perineal laceration during delivery; O77.0 Labor and delivery complicated by meconium in amniotic fluid; Z3A.38 38 weeks gestation of pregnancy; Z82.49 Family history of ischemic heart disease and other diseases of the circulatory system; Z87.891 Personal history of nicotine dependence; Z91.041 Radiographic dye allergy status
CPT/HCPCS: 59025; 81001; 82565; 82570; 83615; 84156; 84450; 84460; 84520; 84550; 85025; 85384; 85610; 85730; 86850; 86900; 86901; 99213